=== PATIENT | male | born 1995 | race Caucasian/White ===

== ENCOUNTER 2017-07-12 18:44 | Emergency (ER) | payer OTHER ==
[~2017-07-12] VITALS: Ht 182.9 cm; Wt 76.0 kg
[~2017-07-12 18:44] MED LIST: PEPCID20 MG PO; ZOFRAN4 MG PO
[2017-07-12] MEDS ORDERED: NORCO 10/3251 TABLET PO (21:56)
[2017-07-12] MEDS ORDERED: MOTRIN800 MG PO (21:56)
[2017-07-12] MEDS ORDERED: VALIUM2 MG PO (21:56)
[2017-07-12] MEDS ORDERED: VALIUM5 MG PO (22:01)
[2017-07-12 22:46] VITALS: BP 00/0
== END 2017-07-12 22:47 | disposition home or self-care (01) ==
LOC: RME 18:44 → EME 18:44 → RME 22:47
DX: S16.1XXA Strain of muscle, fascia and tendon at neck level, initial encounter (principal); S29.012A Strain of muscle and tendon of back wall of thorax, initial encounter; S39.012A Strain of muscle, fascia and tendon of lower back, initial encounter; V89.2XXA Person injured in unspecified motor-vehicle accident, traffic, initial encounter; Y92.410 Unspecified street and highway as the place of occurrence of the external cause
CPT/HCPCS: 72040; 72070; 72100; 99281; 99284